=== PATIENT | female | born 1955 | race Caucasian/White ===

== ENCOUNTER → 2016-10-30 | Outpatient (CLI) | payer OTHER ==
[~2016-10-30] MED LIST: CIPRO 250MG TA250 MG PO; CLINDAMYCIN300 MG PO; DITROPAN 5MG TAB5 MG PO; KOMBIGLYZE XR 11 TE1 PO; LANTUS100 U/ML; NORCO 325 MG-51 TAB PO; PRISTIQ100 MG PO; Patient's Own Medication PO; ROPINIROLE2 MG PO; TOPROL XL 50MG50 MG PO; WELCHOL625 MG PO
== END ==
LOC: LAB 08:08
DX: E11.9 Type 2 diabetes mellitus without complications (principal); I10 Essential (primary) hypertension

== ENCOUNTER 2016-12-03 16:07 | Outpatient (RCR) | payer OTHER ==
[2015-05-15 11:32] VITALS: BP 148/79
== END 2016-12-19 10:29 | disposition home or self-care (01) ==
LOC: PT 16:07
DX: M48.02 Spinal stenosis, cervical region (principal); R20.2 Paresthesia of skin

== ENCOUNTER → 2016-12-12 | Outpatient (CLI) | payer OTHER | LOC: RAD 11:35 | DX: M48.02 Spinal stenosis, cervical region (principal); M54.12 Radiculopathy, cervical region; M50.321 Other cervical disc degeneration at C4-C5 level; M50.322 Other cervical disc degeneration at C5-C6 level ==

== ENCOUNTER → 2016-12-26 | Outpatient (CLI) | payer OTHER | LOC: RAD 06:54 | DX: M48.02 Spinal stenosis, cervical region (principal); M54.12 Radiculopathy, cervical region ==

== ENCOUNTER → 2017-04-08 | Outpatient (CLI) | payer OTHER ==
[2015-05-15 11:32] VITALS: BP 148/79
== END ==
LOC: RAD 11:08
DX: M25.551 Pain in right hip (principal); R06.83 Snoring; I10 Essential (primary) hypertension; E11.9 Type 2 diabetes mellitus without complications; F33.41 Major depressive disorder, recurrent, in partial remission; M48.02 Spinal stenosis, cervical region; M16.0 Bilateral primary osteoarthritis of hip

== ENCOUNTER → 2017-05-15 | Outpatient (CLI) | payer OTHER ==
[2015-05-15 11:32] VITALS: BP 148/79
== END ==
LOC: LAB 10:11
DX: E11.9 Type 2 diabetes mellitus without complications (principal); I10 Essential (primary) hypertension

== ENCOUNTER 2017-11-28 15:15 | Outpatient (RCR) | payer OTHER ==
[2015-05-15 11:32] VITALS: BP 148/79
== END 2017-11-28 15:45 | disposition home or self-care (01) ==
LOC: PT 15:15
DX: Z47.89 Encounter for other orthopedic aftercare (principal)

== ENCOUNTER 2018-01-20 15:30 | Outpatient (RCR) | payer OTHER ==
[2015-05-15 11:32] VITALS: BP 148/79
== END 2018-04-07 | disposition home or self-care (01) ==
LOC: PT
DX: M76.31 Iliotibial band syndrome, right leg (principal)

== ENCOUNTER → 2018-05-16 | Outpatient (CLI) | payer OTHER ==
[2015-05-15 11:32] VITALS: BP 148/79
[2018-05-16 11:18] LABS: ALBUMIN 4.5 g/dL (3.5-5.0); BUN/CREATININE RATIO 19.1 (6.0-26.0); CALCIUM 8.9 mg/dL (8.4-10.2); POTASSIUM 4.3 mmol/L (3.6-5.0); TOTAL BILIRUBIN 0.7 mg/dL (0.2-1.3); TOTAL PROTEIN 8.1 g/dL (6.3-8.2)
== END ==
LOC: LAB 10:00
PROVIDERS: Family Medicine
DX: E11.9 Type 2 diabetes mellitus without complications (principal); I10 Essential (primary) hypertension

== ENCOUNTER → 2018-08-27 | Outpatient (CLI) | payer OTHER ==
[2015-05-15 11:32] VITALS: BP 148/79
[2018-08-27 16:43] LABS: BASO # 0.1 (0.02-0.10); EOS # 0.3 (0.04-0.40); EOS % 2.8 % (1.0-5.0); HEMATOCRIT 39.6 % (37.0-47.0); HEMOGLOBIN 13.9 g/dL (12.5-16.0); LYMPH# 3.7 (1.50-4.00); MEAN CELL VOLUME 91 fl (78-100); MEAN CORPUSCULAR HEMOGLOBIN 32 pg (27-31); MEAN CORPUSCULAR HGB CONC 35 g/dL (33-37); MEAN PLATELET VOLUME 10.2 fl (7.4-10.4); MONO # 0.5 (0.20-0.80); NEU # 5.4 (1.40-6.50); PLATELET COUNT 238 K/mm3 (130-400); RED BLOOD COUNT 4.36 M/mm3 (4.10-5.30); RED CELL DISTRIBUTION WIDTH 13.1 % (11.5-14.5); WHITE BLOOD COUNT 9.9 K/mm3 (4.8-10.8)
[2018-08-27 16:54] LABS: ALBUMIN 4.4 g/dL (3.5-5.0); CALCIUM 9.3 mg/dL (8.4-10.2); POTASSIUM 4.1 mmol/L (3.6-5.0); TOTAL BILIRUBIN 0.8 mg/dL (0.2-1.3); TOTAL PROTEIN 7.6 g/dL (6.3-8.2)
[2018-08-27 17:08] LABS: URINE APPEARANCE HAZY; URINE BILIRUBIN NEGATIVE (NEGATIVE); URINE BLOOD NEGATIVE (NEGATIVE); URINE COLOR YELLOW; URINE GLUCOSE NEGATIVE (NEGATIVE); URINE KETONE NEGATIVE (NEGATIVE); URINE LEUKOCYTE ESTERASE 1+ (NEGATIVE); URINE NITRATE NEGATIVE (NEGATIVE); URINE PROTEIN(semi-quant) TRACE mg/dL (NEGATIVE); URINE UROBILINOGEN NORMAL (NORMAL)
== END ==
LOC: RAD 16:12
PROVIDERS: Family Medicine
DX: R10.11 Right upper quadrant pain (principal)

== ENCOUNTER → 2018-09-12 | Outpatient (CLI) | payer OTHER ==
[2015-05-15 11:32] VITALS: BP 148/79
[2018-09-12 14:59] LABS: URINE APPEARANCE HAZY; URINE BILIRUBIN NEGATIVE (NEGATIVE); URINE BLOOD NEGATIVE (NEGATIVE); URINE COLOR YELLOW; URINE GLUCOSE NEGATIVE (NEGATIVE); URINE KETONE NEGATIVE (NEGATIVE); URINE LEUKOCYTE ESTERASE 1+ (NEGATIVE); URINE NITRATE NEGATIVE (NEGATIVE); URINE PROTEIN(semi-quant) TRACE mg/dL (NEGATIVE); URINE UROBILINOGEN NORMAL (NORMAL)
== END ==
LOC: RAD 11:28
PROVIDERS: Family Medicine
DX: M51.34 Other intervertebral disc degeneration, thoracic region (principal); R10.9 Unspecified abdominal pain

== ENCOUNTER → 2018-09-15 | Outpatient (CLI) | payer OTHER ==
[2015-05-15 11:32] VITALS: BP 148/79
== END ==
LOC: RAD 14:30
DX: M47.814 Spondylosis without myelopathy or radiculopathy, thoracic region (principal); M25.78 Osteophyte, vertebrae

== ENCOUNTER → 2019-01-12 | Outpatient (CLI) | payer OTHER ==
[2015-05-15 11:32] VITALS: BP 148/79
[2019-01-12 16:31] LABS: ALBUMIN 4.2 g/dL (3.5-5.0); DIRECT BILIRUBIN 0.4 mg/dL (0.0-0.4); TOTAL BILIRUBIN 0.6 mg/dL (0.2-1.3); TOTAL PROTEIN 7.3 g/dL (6.3-8.2)
== END ==
LOC: LAB 15:01
PROVIDERS: Family Medicine
DX: E78.2 Mixed hyperlipidemia (principal); E11.9 Type 2 diabetes mellitus without complications; I10 Essential (primary) hypertension

== ENCOUNTER → 2019-08-14 | Outpatient (CLI) | payer OTHER ==
[2015-05-15 11:32] VITALS: BP 148/79
[2019-08-14 12:27] LABS: HEMATOCRIT 39.3 % (37.0-47.0); HEMOGLOBIN 13.7 g/dL (12.5-16.0); MEAN PLATELET VOLUME 10.3 fl (7.4-10.4); RED BLOOD COUNT 4.38 M/mm3 (4.10-5.30); RED CELL DISTRIBUTION WIDTH 13.2 % (11.5-14.5); WHITE BLOOD COUNT 8.1 K/mm3 (4.8-10.8)
[2019-08-14 12:34] LABS: POTASSIUM 3.9 mmol/L (3.5-5.1)
[2019-08-14 12:35] LABS: ALBUMIN 4.4 g/dL (3.4-4.8)
[2019-08-14 12:36] LABS: CALCIUM 10.6 mg/dL (8.3-10.5)
[2019-08-14 12:37] LABS: TOTAL PROTEIN 7.9 g/dL (6.2-8.1)
[2019-08-14 12:39] LABS: TOTAL BILIRUBIN 0.6 mg/dL (0.2-1.2)
== END ==
LOC: LAB 12:06
PROVIDERS: Family Medicine
DX: E11.9 Type 2 diabetes mellitus without complications (principal); I10 Essential (primary) hypertension; F34.1 Dysthymic disorder; R53.83 Other fatigue

== ENCOUNTER → 2019-12-08 | Outpatient (CLI) | payer OTHER ==
[2015-05-15 11:32] VITALS: BP 148/79
[2019-12-08 13:19] LABS: ALBUMIN 4.3 g/dL (3.4-4.8)
[2019-12-08 13:21] LABS: TOTAL PROTEIN 7.7 g/dL (6.2-8.1)
[2019-12-08 13:23] LABS: TOTAL BILIRUBIN 0.6 mg/dL (0.2-1.2)
[2019-12-08 13:27] LABS: DIRECT BILIRUBIN 0.3 mg/dL (0.0-0.5)
== END ==
LOC: LAB 12:33
PROVIDERS: Family Medicine
DX: E11.9 Type 2 diabetes mellitus without complications (principal); I10 Essential (primary) hypertension; E78.2 Mixed hyperlipidemia

== ENCOUNTER → 2019-12-10 | Outpatient (CLI) | payer OTHER ==
[2015-05-15 11:32] VITALS: BP 148/79
== END ==
LOC: LAB 11:13
DX: F33.41 Major depressive disorder, recurrent, in partial remission (principal); E78.2 Mixed hyperlipidemia; E11.9 Type 2 diabetes mellitus without complications; G43.909 Migraine, unspecified, not intractable, without status migrainosus; I10 Essential (primary) hypertension

== ENCOUNTER → 2020-11-09 | Outpatient (CLI) | payer OTHER ==
[2015-05-15 11:32] VITALS: BP 148/79
[2020-11-09 12:05] LABS: POTASSIUM 4.1 mmol/L (3.5-5.1)
[2020-11-09 12:06] LABS: ALBUMIN 4.1 g/dL (3.4-4.8); CALCIUM 9.2 mg/dL (8.3-10.5); TOTAL BILIRUBIN 0.5 mg/dL (0.2-1.2); TOTAL PROTEIN 7.2 g/dL (6.2-8.1)
== END ==
LOC: LAB 09:48
PROVIDERS: Family Medicine
DX: E11.9 Type 2 diabetes mellitus without complications (principal)

== ENCOUNTER → 2020-11-16 | Outpatient (CLI) | payer OTHER ==
[2015-05-15 11:32] VITALS: BP 148/79
== END ==
LOC: LAB 14:30
DX: M20.42 Other hammer toe(s) (acquired), left foot (principal)

== ENCOUNTER → 2021-03-31 | Outpatient (CLI) | payer OTHER ==
[2015-05-15 11:32] VITALS: BP 148/79
== END ==
LOC: LAB 09:43
DX: E11.9 Type 2 diabetes mellitus without complications (principal)

== ENCOUNTER → 2022-03-30 | Outpatient (CLI) | payer MEDICARE, OTHER ==
[2022-03-30 11:08] LABS: POTASSIUM 4.6 mmol/L (3.5-5.1)
[2022-03-30 11:09] LABS: ALBUMIN 4.3 g/dL (3.4-4.8)
[2022-03-30 11:10] LABS: CALCIUM 9.9 mg/dL (8.3-10.5)
[2022-03-30 11:11] LABS: TOTAL PROTEIN 7.4 g/dL (6.2-8.1)
[2022-03-30 11:13] LABS: TOTAL BILIRUBIN 0.6 mg/dL (0.2-1.2)
== END ==
LOC: LAB 10:23
PROVIDERS: Family Medicine
DX: E78.2 Mixed hyperlipidemia (principal); E11.9 Type 2 diabetes mellitus without complications

== ENCOUNTER → 2022-04-11 | Outpatient (CLI) | payer MEDICARE, OTHER | LOC: RAD 11:31 | DX: Z00.00 Encounter for general adult medical examination without abnormal findings (principal); Z13.6 Encounter for screening for cardiovascular disorders; M25.551 Pain in right hip ==

== ENCOUNTER → 2022-04-17 | Outpatient (CLI) | payer MEDICARE, OTHER | LOC: VAS 12:55 → RAD 13:00 | DX: R01.1 Cardiac murmur, unspecified (principal); E11.9 Type 2 diabetes mellitus without complications; I10 Essential (primary) hypertension ==

== ENCOUNTER → 2022-04-24 | Outpatient (CLI) | payer MEDICARE, OTHER | LOC: MAMMO 10:15 | DX: Z12.31 Encounter for screening mammogram for malignant neoplasm of breast (principal); N63.10 Unspecified lump in the right breast, unspecified quadrant ==

== ENCOUNTER → 2022-05-03 | Outpatient (CLI) | payer MEDICARE, OTHER | LOC: MAMMO 12:15 | DX: N63.10 Unspecified lump in the right breast, unspecified quadrant (principal) ==

== ENCOUNTER 2023-11-22 10:57 | Emergency (ER) | payer MEDICARE, OTHER ==
[~2023-11-22] VITALS: Ht 149.9 cm; Wt 68.1 kg
[~2023-11-22 10:57] MED LIST changes: -CYMBALTA60 M1 PO; -FLUTICASONE P15.8 ML NS; -LANTUS SOLOS100 U/ML SQ; -LEADER C 250 MG1 TAB PO; -LEADER MELATONIN5 MG PO; -MULTIVITAMIN1 EACH PO; -NIACIN FLUSH F400 MG PO; -PEPCID 20MG TAB20 MG; -VITAMIN B122500 MC1 PO; -ZOCOR40 M1 PO; -[UNRECOGNIZED DRUG - OTHER] PO
[2023-11-22 11:51] LABS: PH-URINE 5.5 (5.0 - 8.0); URINE APPEARANCE CLEAR (CLEAR); URINE COLOR YELLOW (YELLOW); URINE PROTEIN(semi-quant) NEGATIVE (NEGATIVE)
[2023-11-22 11:52] LABS: URINE BILIRUBIN NEGATIVE (NEGATIVE); URINE BLOOD NEGATIVE (NEGATIVE); URINE GLUCOSE TRACE (NEGATIVE); URINE KETONE NEGATIVE (NEGATIVE); URINE LEUKOCYTE ESTERASE NEGATIVE (NEGATIVE); URINE NITRATE NEGATIVE (NEGATIVE)
[2023-11-22 12:04] LABS: BASO # 0.07 K/mm3 (0.02-0.10); EOS # 0.24 K/mm3 (0.04-0.40); HEMATOCRIT 33.4 % (37.0-47.0); HEMOGLOBIN 11.6 g/dL (12.5-16.0); MEAN CELL VOLUME 91 fl (78-100); MEAN CORPUSCULAR HEMOGLOBIN 32 pg (27-31); MEAN CORPUSCULAR HGB CONC 35 g/dL (33-37); MEAN PLATELET VOLUME 9.4 fl (7.4-10.4); MONO # 0.45 K/mm3 (0.20-0.80); NEU # 4.62 K/mm3 (1.40-6.50); PLATELET COUNT 213 K/mm3 (130-400); RED BLOOD COUNT 3.66 M/mm3 (4.10-5.30); RED CELL DISTRIBUTION WIDTH 12.8 % (11.5-14.5); WHITE BLOOD COUNT 8.1 K/mm3 (4.8-10.8)
[2023-11-22 12:07] LABS: ALBUMIN 4.4 g/dL (3.4-4.8)
[2023-11-22 12:09] LABS: CALCIUM 10.2 mg/dL (8.3-10.5)
[2023-11-22 12:10] LABS: TOTAL PROTEIN 7.6 g/dL (6.2-8.1)
[2023-11-22 12:29] LABS: TOTAL BILIRUBIN 0.5 mg/dL (0.2-1.2)
[2023-11-22] MEDS ORDERED: PEPCID 20MG TAB20 MG (14:02)
[2023-11-22] MEDS ORDERED: LANTUS SOLOS100 U/ML SQ (14:04)
[2023-11-22] MEDS ORDERED: FLUTICASONE P15.8 ML NS (14:05)
[2023-11-22] MEDS ORDERED: CYMBALTA60 M1 PO (14:05)
[2023-11-22] MEDS ORDERED: ZOCOR40 M1 PO (14:05)
[2023-11-22] MEDS ORDERED: MULTIVITAMIN1 EACH PO (14:07)
[2023-11-22] MEDS ORDERED: NIACIN FLUSH F400 MG PO (14:08)
[2023-11-22] MEDS ORDERED: LEADER MELATONIN5 MG PO (14:09)
[2023-11-22] MEDS ORDERED: VITAMIN B122500 MC1 PO (14:09)
[2023-11-22] MEDS ORDERED: [UNRECOGNIZED DRUG - OTHER] PO (14:10)
[2023-11-22] MEDS ORDERED: LEADER C 250 MG1 TAB PO (14:11)
[2023-11-22 15:15] LABS: CALCIUM 9.6 mg/dL (8.3-10.5)
[2023-11-22 16:12] VITALS: BP 152/67
== END 2023-11-22 16:12 | disposition home or self-care (01) ==
LOC: ED 10:57
PROVIDERS: Nurse Practitioner
DX: N17.9 Acute kidney failure, unspecified (principal); E86.0 Dehydration; E11.9 Type 2 diabetes mellitus without complications; I10 Essential (primary) hypertension; Z79.4 Long term (current) use of insulin; Z79.899 Other long term (current) drug therapy
CPT/HCPCS: J7030

== ENCOUNTER → 2023-11-22 | Outpatient (CLI) | payer MEDICARE, OTHER ==
[~2023-11-22] MED LIST changes: +CYMBALTA60 M1 PO; +FLUTICASONE P15.8 ML NS; +LANTUS SOLOS100 U/ML SQ; +LEADER C 250 MG1 TAB PO; +LEADER MELATONIN5 MG PO; +MULTIVITAMIN1 EACH PO; +NIACIN FLUSH F400 MG PO; +PEPCID 20MG TAB20 MG; +VITAMIN B122500 MC1 PO; +ZOCOR40 M1 PO; +[UNRECOGNIZED DRUG - OTHER] PO
[2023-11-22 10:24] LABS: CALCIUM 10.6 mg/dL (8.3-10.5)
== END ==
LOC: LAB 09:56
PROVIDERS: Family Medicine
DX: E11.9 Type 2 diabetes mellitus without complications (principal)

== ENCOUNTER → 2023-11-25 | Outpatient (CLI) | payer MEDICARE, OTHER ==
[~2023-11-25] MED LIST changes: +CYMBALTA60 M1 PO; +FLUTICASONE P15.8 ML NS; +LANTUS SOLOS100 U/ML SQ; +LEADER C 250 MG1 TAB PO; +LEADER MELATONIN5 MG PO; +MULTIVITAMIN1 EACH PO; +NIACIN FLUSH F400 MG PO; +PEPCID 20MG TAB20 MG; +VITAMIN B122500 MC1 PO; +ZOCOR40 M1 PO; +[UNRECOGNIZED DRUG - OTHER] PO
[2023-11-25 10:09] LABS: HEMATOCRIT 31.3 % (37.0-47.0); HEMOGLOBIN 10.9 g/dL (12.5-16.0); MEAN PLATELET VOLUME 9.3 fl (7.4-10.4); RED BLOOD COUNT 3.45 M/mm3 (4.10-5.30); RED CELL DISTRIBUTION WIDTH 12.5 % (11.5-14.5); WHITE BLOOD COUNT 8.4 K/mm3 (4.8-10.8)
[2023-11-25 10:17] LABS: CALCIUM 9.8 mg/dL (8.3-10.5)
== END ==
LOC: LAB 09:56
PROVIDERS: Nurse Practitioner
DX: E86.0 Dehydration (principal); N17.9 Acute kidney failure, unspecified

== ENCOUNTER → 2023-11-28 | Outpatient (CLI) | payer MEDICARE, OTHER ==
[2023-11-28 11:17] LABS: MAGNESIUM 2.01 mg/dL (1.60-2.60)
[2023-11-28 15:04] LABS: ALBUMIN 4.3 g/dL (3.4-4.8)
[2023-11-28 15:06] LABS: CALCIUM 9.4 mg/dL (8.3-10.5)
[2023-11-28 15:07] LABS: TOTAL PROTEIN 7.3 g/dL (6.2-8.1)
[2023-11-28 15:09] LABS: TOTAL BILIRUBIN 0.38 mg/dL (0.2-1.2)
== END ==
LOC: LAB 10:04
PROVIDERS: Family Medicine
DX: D64.9 Anemia, unspecified (principal); N18.4 Chronic kidney disease, stage 4 (severe)

== ENCOUNTER → 2023-12-31 | Outpatient (CLI) | payer MEDICARE, OTHER ==
[2023-12-31 11:09] LABS: BASO # 0.07 K/mm3 (0.02-0.10); EOS # 0.42 K/mm3 (0.04-0.40); EOS % 4.7 % (1.0-5.0); HEMOGLOBIN 11.5 g/dL (12.5-16.0); LYMPH# 3.45 K/mm3 (1.50-4.00); MEAN CELL VOLUME 91 fl (78-100); MEAN CORPUSCULAR HEMOGLOBIN 32 pg (27-31); MEAN CORPUSCULAR HGB CONC 35 g/dL (33-37); MEAN PLATELET VOLUME 9.3 fl (7.4-10.4); MONO # 0.54 K/mm3 (0.20-0.80); PLATELET COUNT 221 K/mm3 (130-400); RED BLOOD COUNT 3.63 M/mm3 (4.10-5.30); WHITE BLOOD COUNT 8.9 K/mm3 (4.8-10.8)
[2023-12-31 11:14] LABS: ALBUMIN 4.5 g/dL (3.4-4.8)
[2023-12-31 11:16] LABS: CALCIUM 10.1 mg/dL (8.3-10.5)
[2023-12-31 11:17] LABS: TOTAL PROTEIN 7.9 g/dL (6.2-8.1)
[2023-12-31 11:19] LABS: TOTAL BILIRUBIN 0.8 mg/dL (0.2-1.2)
[2023-12-31 15:03] LABS: URINE APPEARANCE CLOUDY (CLEAR); URINE BILIRUBIN NEGATIVE (NEGATIVE); URINE BLOOD NEGATIVE (NEGATIVE); URINE COLOR YELLOW (YELLOW); URINE GLUCOSE 1+ (NEGATIVE); URINE KETONE TRACE (NEGATIVE); URINE LEUKOCYTE ESTERASE TRACE (NEGATIVE); URINE NITRATE NEGATIVE (NEGATIVE); URINE PROTEIN(semi-quant) NEGATIVE (NEGATIVE)
== END ==
LOC: LAB 10:41
PROVIDERS: Internal Medicine Nephrology
DX: N17.9 Acute kidney failure, unspecified (principal)

== ENCOUNTER → 2024-02-25 | Outpatient (CLI) | payer MEDICARE, OTHER ==
[2024-02-25 14:24] LABS: CALCIUM 9.6 mg/dL (8.3-10.5)
== END ==
LOC: LAB 13:54
PROVIDERS: Family Medicine
DX: E11.620 Type 2 diabetes mellitus with diabetic dermatitis (principal); I10 Essential (primary) hypertension

== ENCOUNTER → 2024-06-08 | Outpatient (CLI) | payer MEDICARE, OTHER ==
[2024-06-08 09:47] LABS: CALCIUM 9.5 mg/dL (8.3-10.5)
== END ==
LOC: LAB 09:05
PROVIDERS: Internal Medicine Nephrology
DX: N18.4 Chronic kidney disease, stage 4 (severe) (principal)

== ENCOUNTER → 2024-10-06 | Outpatient (CLI) | payer MEDICARE, OTHER ==
[2024-10-06 10:15] LABS: CALCIUM 9.9 mg/dL (8.3-10.5)
== END ==
LOC: LAB 09:47
PROVIDERS: Internal Medicine Nephrology
DX: N18.4 Chronic kidney disease, stage 4 (severe) (principal)

== ENCOUNTER → 2024-12-03 | Outpatient (CLI) | payer MEDICARE, OTHER ==
[2024-12-03 11:40] LABS: CALCIUM 9.6 mg/dL (8.3-10.5)
== END ==
LOC: LAB 11:17
PROVIDERS: Family Medicine
DX: E11.9 Type 2 diabetes mellitus without complications (principal)

== ENCOUNTER → 2025-02-02 | Outpatient (CLI) | payer MEDICARE, OTHER ==
[2025-02-02 10:41] LABS: CALCIUM 9.6 mg/dL (8.3-10.5)
== END ==
LOC: LAB 09:53
PROVIDERS: Internal Medicine Nephrology
DX: N18.4 Chronic kidney disease, stage 4 (severe) (principal)